=== PATIENT | male | born 1955 | race Caucasian/White ===

== ENCOUNTER 2018-04-01 23:34 | Emergency (ER) | payer BC ==
--- NOTE | 2018-04-02 00:14 | EDM.PDOC ---
ED HPI GENERAL MEDICAL PROBLEM - General Chief Complaint: Upper Extremity Injury/Pain Stated Complaint: BROKEN RIGHT WRIST? Time Seen by Provider: 04/01/18 23:35 Source of Information: Reports: Patient History Limitations: Reports: No Limitations - History of Present Illness INITIAL COMMENTS - FREE TEXT/NARRATIVE: 63-year-old male who fell onto his right wrist sustaining an injury. He has some deformity of the wrist. Sensation to the fingers is intact. Onset: Sudden Duration: Hour(s): (Within the last 2 hours) Location: Reports: Upper Extremity, Right Severity: Moderate Associated Symptoms: Reports: No Other Symptoms, Other (He does have chronic peripheral neuropathy which is unchanged) Right Wrist Pain Score (Numeric/FACES): 9 - Related Data Allergies Allergy/AdvReac Type Severity Reaction Status Date / Time Penicillins Allergy Cannot Verified 04/01/18 23:52 Remember Home Meds: Home Meds . 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 GI Surgical History: Reports: Colonoscopy Neurological Surgical History: Reports: Other (See Below) 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 He has no clavicle or humerus tenderness, the elbow is nontender. There is deformity with significant tenderness to the distal forearm and wrist. Movement of the fingers as well as sensation is intact.) Course - Vital Signs Last Recorded V/S: Last Vital Signs Temp 98.4 F 04/02/18 00:14 Pulse 76 04/02/18 00:14 Resp 16 04/02/18 00:14 BP 117/57 L 04/02/18 00:14 Pulse Ox 95 04/02/18 00:14 - Orders/Labs/Meds Orders: Active Orders 24 hr Category Date Time Status Wrist Comp Min 3V Rt [CR] Stat Exams 04/02/18 00:10 Taken Wrist Comp Min 3V Rt [CR] Stat Exams 04/02/18 00:54 Taken Meds: Medications Discontinued Medications Generic Name Dose Route Start Last Admin Trade Name Freq PRN Reason Stop Dose Admin Bupivacaine HCl 30 ml 04/02/18 00:30 04/02/18 00:41 Marcaine 0.5% INFILT 04/02/18 00:31 30 ml ONETIME ONE Administration Hydromorphone HCl 1 mg 04/02/18 00:27 04/02/18 00:31 Dilaudid IM 04/02/18 00:28 1 mg ONETIME ONE Administration - Re-Assessments/Exams Free Text/Narrative Re-Assessment/Exam: 04/02/18 00:14 An x-ray of the right wrist was obtained. 04/02/18 01:14 Prior to the x-rays the patient was given 1 mg of IM Dilaudid. The x-ray showed a comminuted distal radius fracture with significant displacement. The overlying skin was sterilized, and a Marcaine 0.5% hematoma block was placed, the fracture fragments were reduced and a forearm Ortho-Glass splint 14 inches was applied to the arm. Postreduction x-rays were done and showed improvement, copies of the x-rays were given to the patient and he will recheck with orthopedics on Tuesday. He was provided a sling. Departure - Departure Time of Disposition: 01:33 Disposition: Home, Self-Care 01 Condition: Good Clinical Impression: Fracture of radius and ulna Qualifiers: Encounter type: initial encounter Fracture type: closed Laterality: right Qualified Code(s): S52.91XA - Unspecified fracture of right forearm, initial encounter for closed fracture - Discharge Information Instructions: Wrist Fracture Treated With Immobilization, [id number] Referrals: PCP,None [Primary Care Provider] - Forms: ED Department Discharge Care Plan Goals: Keep the splint on your arm and use sling for comfort, and recheck on Tuesday with orthopedics. - My Orders Last 24 Hours: My Active Orders 04/02/18 00:10 Wrist Comp Min 3V Rt [CR] Stat 04/02/18 00:54 Wrist Comp Min 3V Rt [CR] Stat - Assessment/Plan Last 24 Hours: My Active Orders 04/02/18 00:10 Wrist Comp Min 3V Rt [CR] Stat 04/02/18 00:54 Wrist Comp Min 3V Rt [CR] Stat
[2018-04-02] MEDS ORDERED: HYDROmorphone 1 MG/ML Syringe IM ONE (00:27)
[2018-04-02] MEDS ORDERED: Bupivacaine 0.5% 30 ML SDV INFILT ONE (00:30)
--- NOTE | 2018-04-03 09:44 | CR ---
Wrist Comp Min 3V Rt CLINICAL HISTORY: Pain, trauma FINDINGS: Patient is a comminuted displaced the fracture of the distal radius with dorsal angulation. There is a displaced fracture of the ulnar styloid. Impression: Comminuted displaced fracture of the distal radius with a fracture of the ulnar styloid
--- NOTE | 2018-04-03 09:46 | CR ---
Wrist Comp Min 3V Rt CLINICAL HISTORY: Post reduction FINDINGS: Patient has a comminuted slightly dorsally angulation fracture the distal radius and a slig htly displaced fracture of the ulnar styloid. There has been some reduction. There is a fiberglass ca st in place. Impression: Postreduction images of distal radial and ulnar fracture in cast
== END 2018-04-02 01:33 | disposition home or self-care (01) ==
LOC: JP.ED 23:34
DX: S52.611A Displaced fracture of right ulna styloid process, initial encounter for closed fracture (principal); S52.501A Unspecified fracture of the lower end of right radius, initial encounter for closed fracture; Z88.0 Allergy status to penicillin; W19.XXXA Unspecified fall, initial encounter
CPT/HCPCS: 25605; 73110; 96372; 99284; J1170; J3490